=== PATIENT | male | born 1980 | race Caucasian/White ===

== ENCOUNTER 2018-03-07 17:00 | Outpatient (CLI) | payer BC | END 2018-03-07 17:01 | disposition home or self-care (01) | LOC: SLEEPLAB 17:00 | PROVIDERS: ATTEND Family Medicine | DX: G47.33 Obstructive sleep apnea (adult) (pediatric) (principal); E66.9 Obesity, unspecified; F41.8 Other specified anxiety disorders | CPT/HCPCS: 95806 ==

== ENCOUNTER 2018-11-11 10:28 | Outpatient (CLI) | payer BC | END 2018-11-11 10:29 | disposition home or self-care (01) | LOC: DTY/OP 10:28 | PROVIDERS: ATTEND Surgery | DX: E66.01 Morbid (severe) obesity due to excess calories (principal) | CPT/HCPCS: 97802 ==